=== PATIENT | female | born 1975 | race Two or more races ===

== ENCOUNTER 2021-04-19 09:03 | Emergency (ER) | payer BC, MEDICAID ==
[~2021-04-19] VITALS: Ht 162.6 cm; Wt 197.0 kg
[2021-04-19 10:04] VITALS: BP 133/91
--- NOTE | 2021-04-19 12:35 | NUR ---
pt left without dc instructions, "I am tired of waiting"
== END 2021-04-19 12:37 | disposition home or self-care (01) ==
LOC: ER 09:03
DX: J06.9 Acute upper respiratory infection, unspecified (principal); Z20.822 Contact with and (suspected) exposure to COVID-19
CPT/HCPCS: 87635; 99283; C9803

== ENCOUNTER 2021-05-01 22:28 | Emergency (ER) | payer BC, MEDICAID ==
[~2021-05-01] VITALS: Ht 162.6 cm; Wt 85.0 kg
[2021-05-01] MEDS ORDERED: acetaminophen 325mg tablet PO ONE (23:15)
[2021-05-01] MEDS ORDERED: ONDA4TAB6 PO (23:33)
[2021-05-01] MEDS ORDERED: BENZ-16 PO (23:33)
[2021-05-01 23:40] VITALS: BP 128/88
== END 2021-05-01 23:41 | disposition home or self-care (01) ==
LOC: ER 22:28
DX: U07.1 COVID-19 (principal)
CPT/HCPCS: 99283